=== PATIENT | female | born 1965 | race Caucasian/White ===

== ENCOUNTER 2019-01-14 12:33 | Emergency (ER) | payer MEDICAID ==
[~2019-01-14] VITALS: Ht 167.6 cm; Wt 87.1 kg
[2019-01-14 18:09] VITALS: BP 156/115
== END 2019-01-14 18:58 | disposition home or self-care (01) ==
LOC: ED 18:45
DX: R55 Syncope and collapse (principal); I10 Essential (primary) hypertension; K21.9 Gastro-esophageal reflux disease without esophagitis
CPT/HCPCS: 36415; 80048; 85025; 93005; 99284; Q0162

== ENCOUNTER 2019-06-17 15:34 | Emergency (ER) | payer MEDICAID ==
[~2019-06-17] VITALS: Ht 167.6 cm; Wt 87.0 kg
[~2019-06-17 15:34] MED LIST: ACID1TAB7 PO; ATOR-2 PO; CARV6.2512 PO; COLE1TAB2 PO; FERR-51 PO; HYDR12.517 PO; LOSA25TA25 PO; OMEP-110 PO; POTA20TA6 PO; THIA100T67 PO; VENL75CA6 PO
[2019-06-17 15:40] VITALS: BP 138/93
--- NOTE | 2019-06-17 16:46 | NUR ---
PT LEFT AMA TODAY AFTER BEING HOSPITALIZED FOR 5 DAYS, PT STATES SHE DETOXED AND NOW SHE FEELS FINE WITH THAT ALTHOUGH SHE IS STILL HAVING DIARRHEA AND SHE GOT NERVOUS AND DECIDED TO COME BACK TO GET ADMITTED
--- NOTE | 2019-06-17 18:31 | NUR ---
ERMD IN TO EVAL PT, ORDERS RECIEVED
[2019-06-17 18:50] LABS: BASOPHILS # (AUTO) 0.03 x10^3/uL (0-0.1); BASOPHILS % (AUTO) 0 % (0-1); EOSINOPHILS # (AUTO) 0.07 x10^3/uL (0-0.4); EOSINOPHILS % (AUTO) 1 % (1-7); LYMPHOCYTES # (AUTO) 1.17 x10^3/uL (1-3.4); LYMPHOCYTES % (AUTO) 19 % (22-44); MD MORPH REVIEW ONLY; MEAN CORPUSCULAR HGB CONC 32.7 g/dL (32.4-35.8); MEAN CORPUSCULAR VOLUME 110.1 fL (80-100); MEAN PLATELET VOLUME 7.9 fL (7.4-10.4); MONOCYTES # (AUTO) 0.71 x10^3/uL (0.2-0.8); MONOCYTES % (AUTO) 12 % (2-9); NEUTROPHILS % (AUTO) 68 % (42-75); PLATELET COUNT 404 x10^3/uL (130-400); RED BLOOD COUNT 3.14 x10^6/uL (3.82-5.3); RED CELL DISTRIBUTION WIDTH 16.1 % (9.6-15.2)
[2019-06-17 18:53] LABS: ALANINE AMINOTRANSFERASE 135 U/L (12-78); ALBUMIN 3.2 g/dL (3.4-5.0); ANION GAP 8 mmol/L (5-15); CHLORIDE 108 mmol/L (98-107)
[2019-06-17 18:55] LABS: ALKALINE PHOSPHATASE 335 U/L (45-117); BILIRUBIN,TOTAL 2.5 mg/dL (0.2-1.0); TOTAL PROTEIN 7.9 g/dL (6.4-8.2)
[2019-06-17 19:20] LABS: <PLATELET ESTIMATE> INCREASED; <PLT MORPHOLOGY> NORMAL PLT MORPH; POLYCHROMASIA 1+
== END 2019-06-17 20:28 | disposition home or self-care (01) ==
LOC: ED 19:05
DX: K70.10 Alcoholic hepatitis without ascites (principal); R00.0 Tachycardia, unspecified; I10 Essential (primary) hypertension; K21.9 Gastro-esophageal reflux disease without esophagitis; F17.200 Nicotine dependence, unspecified, uncomplicated
CPT/HCPCS: 36415; 80053; 83690; 85025; 93005; 99284